=== PATIENT | male | born 1965 | race Two or more races ===

== ENCOUNTER 2022-01-06 14:58 | Emergency (ER) | payer OTHER ==
[~2022-01-06] VITALS: Ht 167.6 cm; Wt 74.8 kg
--- NOTE | 2022-01-06 15:30 | NUR ---
C/O PAIN IN RIGHT LEG AND LEFT WRIST/FOREARM, S/P GLF WHILE WALKING.
--- NOTE | 2022-01-06 15:50 | NUR ---
X-RAY TECH AT BEDSIDE
[2022-01-06] MEDS ORDERED: IBUP-1955 PO (16:47)
[2022-01-06] MEDS ORDERED: KETOROLAC TROMETHAMINE 15 MG/ML VIAL ONE ×2 (16:59)
[2022-01-06] MEDS ORDERED: KETOROLAC TROMETHAMINE INJ 30 MG/ML VIAL IM ONE (17:00)
--- NOTE | 2022-01-06 17:00 | NUR ---
Patient discharged to home in stable condition. Written and verbal after care instructions given. Patient verbalizes understanding of instruction.
[2022-01-06 17:14] VITALS: BP 115/65
== END 2022-01-06 17:00 | disposition home or self-care (01) ==
LOC: ER 15:04
DX: S63.502A Unspecified sprain of left wrist, initial encounter (principal); S93.401A Sprain of unspecified ligament of right ankle, initial encounter; W01.0XXA Fall on same level from slipping, tripping and stumbling without subsequent striking against object, initial encounter; Y93.89 Activity, other specified; Y92.89 Other specified places as the place of occurrence of the external cause; Y99.8 Other external cause status
CPT/HCPCS: 99284; 96372; 73610; 73110; J1885